=== PATIENT | male | born 1985 | race Caucasian/White ===

== ENCOUNTER 2020-03-23 15:12 | Emergency (ER) | payer MEDICAID, OTHER ==
[~2020-03-23] VITALS: Ht 167.6 cm; Wt 95.3 kg
--- NOTE | 2020-03-23 16:45 | NUR ---
BP at 128/85mmHg HR at 85 NAD VSS RA
--- NOTE | 2020-03-23 16:48 | NUR ---
Patient discharged to home in stable condition. Written and verbal after care instructions given. Patient verbalizes understanding of instructions. Stressed follow up or return to ER for worsening s/s. all belongings w/ pt
[2020-03-23 16:52] VITALS: BP 129/85
== END 2020-03-23 16:52 | disposition home or self-care (01) ==
LOC: ER 15:12
DX: Z20.828 Contact with and (suspected) exposure to other viral communicable diseases (principal); R03.0 Elevated blood-pressure reading, without diagnosis of hypertension
CPT/HCPCS: 71045; A4663

== ENCOUNTER 2020-09-22 18:01 | Emergency (ER) | payer OTHER ==
[~2020-09-22] VITALS: Ht 167.6 cm; Wt 95.3 kg
--- NOTE | 2020-09-22 18:10 | NUR ---
PT IS IN ROOM #2B. DR HONG EVALUATED THE PT.
[2020-09-22 18:56] LABS: *BILIRUBIN,URIN NEGATIVE (NEGATIVE); *BLOOD, URINE NEGATIVE (NEGATIVE); *CLARITY,URINE CLEAR (CLEAR); *COLOR,URINE LIGHT YELLOW (YELLOW); *KETONES,URINE NEGATIVE (NEGATIVE); *UROBILINOGEN,URINE 0.2 E.U./dl (NORMAL); LEUKOCYTE ESTERASE ,URINE NEGATIVE (NEGATIVE); NITRITE, URINE NEGATIVE (NEGATIVE); PH,URINE 5.5 (5.0-8.0); UGLUCOSE NEGATIVE (NEGATIVE)
[2020-09-22 18:57] LABS: *URINE HCG, QUAL NEGATIVE
[2020-09-22 18:58] LABS: BASOPHILS # (AUTO) 0.1 K/uL (0.0-8.0); BASOPHILS % (AUTO) 1.1 % (0.0-2.0); EOSINOPHILS # (AUTO) 0.2 K/uL (0.0-0.7); EOSINOPHILS % (AUTO) 1.6 % (0.0-7.0); HEMATOCRIT 45.7 % (36.7-47.1); HEMOGLOBIN 15.8 g/dL (12.5-16.3); LYMPHOCYTES # (AUTO) 4.5 K/uL (20.0-40.0); MEAN CORPUSCULAR HEMOGLOBIN 31.2 uug (23.8-33.4); MEAN CORPUSCULAR HGB CONC 35 g/dL (32.5-36.3); MEAN CORPUSCULAR VOLUME 90.5 fL (73.0-96.2); MONOCYTES # (AUTO) 0.9 K/uL (2.0-10.0); MONOCYTES % (AUTO) 7.4 % (0.0-11.0); NEUTROPHILS # (AUTO) 5.9 K/uL (1.8-8.9); NEUTROPHILS % (AUTO) 50.9 % (38.5-71.5); PLATELET COUNT (AUTO) 258 K/uL (152-348); RED BLOOD CELL COUNT(AUTO) 5.06 MIL/uL (4.06-5.63); WHITE BLOOD COUNT (AUTO) 11.6 K/uL (3.6-10.2)
[2020-09-22] MEDS ORDERED: IV NORMAL SALINE 1000 ML BAG IV ONE (19:00)
[2020-09-22 19:05] LABS: CREATININE 0.8 mg/dL (0.6-1.3); POTASSIUM 3.8 mmol/L (3.5-5.1)
[2020-09-22 19:11] LABS: BILIRUBIN,DIRECT 0.1 mg/dL (0.0-0.2); BILIRUBIN,TOTAL 0.2 mg/dL (0.2-1.0)
[2020-09-22] MEDS ORDERED: IOHEXOL 300MG/ML 100 ML INFUS..BTL ONE (19:33)
[2020-09-22] MEDS ORDERED: SWABABLE VALVE TRANSFER SET EA MC ONE (19:33)
[2020-09-22] MEDS ORDERED: IV NORMAL SALINE 250 ML IV ONE (19:33)
--- NOTE | 2020-09-22 19:39 | NUR ---
Pt out of ER for CT.
--- NOTE | 2020-09-22 19:56 | NUR ---
Pt back to ER from CT.
[2020-09-22] MEDS ORDERED: CEFTRIAXONE 1 G in IV DEXTROSE 5% 50 ML IV ONE (20:30)
[2020-09-22] MEDS ORDERED: KETOROLAC TROMETHAMINE 30 MG INJ ONE (21:05)
--- NOTE | 2020-09-22 21:06 | NUR ---
Patient discharged to home in stable condition. Written and verbal after care instructions given. Patient verbalizes understanding of instructions. Stressed follow up or return to ER for worsening s/s. Pt out of ER with steady gait, no acute signs of distress, VSS, all belongings taken, IV site discontinued, provided with copies of labs, CT results, and a CD of images.
[2020-09-22 21:11] VITALS: BP 120/78
== END 2020-09-22 21:21 | disposition home or self-care (01) ==
LOC: ER 18:01
DX: R10.84 Generalized abdominal pain (principal); K42.9 Umbilical hernia without obstruction or gangrene; K40.90 Unilateral inguinal hernia, without obstruction or gangrene, not specified as recurrent; Q63.1 Lobulated, fused and horseshoe kidney; K76.0 Fatty (change of) liver, not elsewhere classified; D72.829 Elevated white blood cell count, unspecified
CPT/HCPCS: 36415; 74177; 80048; 80076; 81003; 83690; 84703; 85025; 93005; 96360; 96361; 99285; Q9967; A4663; J1885; J7030; J7050